=== PATIENT | female | born 1990 | race Caucasian/White ===

== ENCOUNTER 2016-12-16 16:28 | Emergency (ER) | payer MEDICAID ==
[~2016-12-16 16:28] MED LIST: CLIN1CAP6 PO; NAPR500 PO
[2016-12-16 16:54] VITALS: BP 133/69; PULSE 102
[2016-12-16 17:00] VITALS: RESP 20; TEMP 98.8
--- NOTE | 2016-12-16 17:26 | PD ---
HPI Chief Complaint Fall at home, decreased FM Date Seen: Dec 16, 2016 Time Seen: 16:45 Travel History International Travel<30 Days: No Contact w/Intl Traveler<30Days: No Known Affected Area: No History of Present Illness HPI 26 year old with no prior care presents to OB ED following at fall at home today at about 09:00 and reporting no movement since the fall. She states she tripped over her younger child and fell on hardwood and did brace her fall with her left hand however still landed on her stomach. Denies LOF or VB. Denies contractions. 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 She states she has not seen any active lesions in her genital region. Denies dysuria or hematuria. She does admit to use of crack cocaine last use about 4 weeks ago; also admits to use of IV Dilaudid last use also about 4 weeks ago. She is currently taking methadone an unknown dose as her clinic does not let their patients know of the dose. She plans to obtain OB care at [facility]. Para: 2 : 3 History Past Medical History Narrative Medical Currently taking methadone IVDA Obstetric History Obstetric History 2 prior term vaginal deliveries Past Surgical History Surgical History: No Previous Surgery Family History Family History: Negative Social History Alcohol Use: No Tobacco Use: Yes (States she is currently smoking about 1 pack every 3 days) Substance Abuse: Yes (Per HPI) Allergies-Medications (Allergen,Severity, Reaction): Coded Allergies: Amoxicillin (Verified Allergy, Intermediate, Rash, 09/22/16) Latex (Verified Adverse Reaction, Mild, Swelling, 09/22/16) Home Meds Active Scripts Naproxen (Naprosyn)500 Mg [id number] Mg PO BID PRN (PAIN SCALE 1 TO 10) #20 TAB Prov:Olayinka Pascal MD 09/22/16 Clindamycin 300 Mg [id number] Mg PO Q6H 10 Days Prov:Olayinka Pascal MD 09/22/16 Review of Systems Except as stated in HPI: all other systems reviewed are Neg Physical Exam Narrative GENERAL: Well-nourished, well-developed patient. SKIN: Warm and dry. HEAD: Normocephalic and atraumatic. EYES: No scleral icterus. No injection or drainage. ENT: No nasal drainage noted. Mucous membranes pink. Airway patent. NECK: Supple, trachea midline. No JVD. CARDIOVASCULAR: Regular rate and rhythm without murmurs, gallops, or rubs. RESPIRATORY: Breath sounds equal bilaterally. No accessory muscle use. ABDOMEN/GI: Abdomen soft, non-tender, bowel sounds present, no rebound, no guarding Gravid to 20 weeks size GENITOURINARY: External Genitalia: [-] BUS glands: [-] Cervix: [-] Dilatation: [-] Effacement: [-] Station: [-] Presentation: [-] Membranes: [intact or ruptured] Uterine Contractions: [-] FHT's: Category: [-] Baseline: [-] Reactive: [-] Variability: [-] Decels: [-] EXTREMITIES: No cyanosis or edema. BACK: Nontender without obvious deformity. NEUROLOGICAL: Awake and alert. Motor and sensory grossly within normal limits. Normal speech. Data Data Vital Signs Reviewed: Yes Orders Ob Poc Ultrasound (12/16/16 ) MDM Medical Record Reviewed: Yes Plan 26 year old with no prior care presents to OB ED following at fall at home today at about 09:00 and reporting no movement since the fall. 1. IUP - POC ultrasound performed in OB triage showed a breech female at 21 weeks 5 days size with BONNIE 04/23/2017 - Fetus active on ultrasound - Obtained urine toxicology screen - Patient was advised to obtain care and stated she will follow up with [facility] however would like to deliver here 2. Vaginal itching - Recommended the patient obtain otc monistat for relief of symptoms - Follow up with OB provider for continued care dejah Galvan Diagnosis Diagnosis: Primary Impression: Intrauterine Additional Impressions: Drug use affecting in second trimester Fall at home Disposition: DISCHARGE HOME Condition: Stable Anmol Reyes MD R1 Dec 16, 2016 17:26
--- NOTE | 2016-12-16 17:27 | PD ---
HPI Chief Complaint Patient fell at home did not hit her abdomen but since falling has not felt baby move, she has no care, and admits to fairly recent drug use and she said she didn't find out she was until a month ago Date Seen: Dec 16, 2016 Travel History International Travel<30 Days: No Contact w/Intl Traveler<30Days: No Known Affected Area: No History of Present Illness HPI The patient is 26-year-old white female with no care approximately 6 months along she doesn't know who presents that falling at home tripping over her toddler she did not hit her abdomen, she denies vaginal bleeding leakage of fluid. Para: 2 : 3 History Obstetric History Obstetric History 2 vaginal deliveries Social History Narrative Social History Patient is currently on methadone she is a known crack cocaine user Dilaudid user she states she was "using" up until a month ago when she found out she was Alcohol Use: Yes Tobacco Use: Yes Substance Abuse: Yes Allergies-Medications (Allergen,Severity, Reaction): Coded Allergies: Amoxicillin (Verified Allergy, Intermediate, Rash, 09/22/16) Latex (Verified Adverse Reaction, Mild, Swelling, 09/22/16) Home Meds Active Scripts Naproxen (Naprosyn)500 Mg [id number] Mg PO BID PRN (PAIN SCALE 1 TO 10) #20 TAB Prov:Olayinka Pascal MD 09/22/16 Clindamycin 300 Mg [id number] Mg PO Q6H 10 Days Prov:Olayinka Pascal MD 09/22/16 Review of Systems General / Constitutional: No: Fever, Weight Gain, Chills, Other Eyes: No: Diploplia, Blurred Vision, Visual changes, Pain, Photophobia HENT: No: Headaches, Vertigo, Lightheadedness Cardiovascular: No: Irregular Rhythm, Chest Pain or Discomfort, Palpitations, Tachycardia, Syncope, Varicosities, Edema, Cyanosis Respiratory: No: Cough, Short of Breath, Other Gastrointestinal: No: Nausea, Vomiting, Diarrhea Genitourinary: No: Decreased Urinary Output, Oliguria Musculoskeletal: No: Limited ROM, Weakness, Cramping, Edema, Pain Skin: No Rash, No Itching, No Dryness, No Lumps, No Change in Pigmentation, No Change in Nails, No Alopecia, No Lesions Neurologic: No: Weakness, Dizziness, Syncope, Focal Abnormalities, Coordination Problem, Headache, Slurred Speech, Seizures Psychiatric: No: Depression, Suicidal Ideations, Homicidal Ideation Endocrine: No: Heat Intolerance, Cold Intolerance, Polydipsia, Polyuria, Other Physical Exam Narrative GENERAL: Well-nourished, well-developed patient. SKIN: Warm and dry.covered in tattoos HEAD: Normocephalic and atraumatic. EYES: No scleral icterus. No injection or drainage. ENT: No nasal drainage noted. Mucous membranes pink. Airway patent. NECK: Supple, trachea midline. No JVD. CARDIOVASCULAR: Regular rate and rhythm without murmurs, gallops, or rubs. RESPIRATORY: Breath sounds equal bilaterally. No accessory muscle use. BREASTS: Bilateral exam showed no masses , no retractions, no nipple discharge. ABDOMEN/GI: Abdomen soft, non-tender, bowel sounds present, no rebound, no guarding Gravid to [-20] weeks size Fundal Height: [umbilicus-] GENITOURINARY: External Genitalia: intact and normal in appearance Membranes: [intact FHT's: Category: [-] Baseline: [-135] EXTREMITIES: No cyanosis or edema. BACK: Nontender without obvious deformity. No CVA tenderness. NEUROLOGICAL: Awake and alert. Motor and sensory grossly within normal limits. Five out of 5 muscle strength in all muscle groups. Normal speech. Data Data Orders Ob Poc Ultrasound (12/16/16 ) Vital Signs (Adult) .ON ADMISSION (12/16/16 17:17) ^ Labor Status (12/16/16 17:17) Ob/Psych Drug Screen, Urine (12/16/16 17:17) Labs Ultrasound done to bedside shows a breech fetus female 21 weeks 5 days size eye growth parameters within normal anatomy scan normal heart rate normal amniotic fluid volume, a right fundal grade 0 placenta, her due date and this ultrasound is 04/23/17 and estimated weight is 434 g, the patient was given a copy of that of report on ultrasound gives her OB provider's she will come across in the next few weeks MDM Interpretation(s) Patient is a 26 white female at 21-22 weeks gestation by an ultrasound done today has no care but presents due to decreased movement after a fall today. Her ultrasound today is normal she is a 21 week 5 day cycle size fetus in a breech presentation with adequate amniotic fluid volume normal right fundal placenta, and a due date by this ultrasound 04/23/17, baby on ultrasound is very active. The patient is planning care in the hospital and through [facility] however she plans to deliver here, she is arranged her first visit in the next few days. Diagnosis Diagnosis: Primary Impression: Decreased movement affecting management of in second trimester Additional Impressions: Fall Drug use affecting in second trimester Disposition: 01 DISCHARGE HOME Condition: Stable Jona Galvan II, MD Dec 16, 2016 17:27
[2016-12-16 18:09] LABS: AMPHETAMINE, URINE NEG (NEG); BARBITURATES, URINE NEG (NEG); COCAINE, URINE NEG (NEG)
[2016-12-20 08:50] LABS: PHENCYCLIDINE URINE NEG (NEG)
[2016-12-20 08:52] LABS: BATH SALTS (MDPV) UR NEG (NEG); ECSTASY (MDMA) UR NEG (NEG); HEROIN (6-ACETYLMORPHINE) UR NEG (NEG); K2 SPICE UR NEG (NEG); OXYCODONE (PERCODAN) NEG (NEG)
[2016-12-20 08:53] LABS: OBMETHADONE UR POS (NEG)
== END 2016-12-16 21:08 | disposition home or self-care (01) ==
LOC: HOBED 16:28
DX: O26.92 Pregnancy related conditions, unspecified, second trimester (principal); S36.30XA Unspecified injury of stomach, initial encounter; O99.332 Smoking (tobacco) complicating pregnancy, second trimester; Z3A.21 21 weeks gestation of pregnancy; W01.0XXA Fall on same level from slipping, tripping and stumbling without subsequent striking against object, initial encounter; Y93.9 Activity, unspecified; Y92.009 Unspecified place in unspecified non-institutional (private) residence as the place of occurrence of the external cause; Y99.9 Unspecified external cause status
CPT/HCPCS: 76815; 80307; 80352; 80354; 80356; 80358; 80359; 80371; 83992; G0480; G0481

== ENCOUNTER 2017-04-06 17:54 | Emergency (ER) | payer MEDICAID ==
[~2017-04-06] VITALS: Ht 157.5 cm; Wt 90.7 kg
--- NOTE | 2017-04-06 19:25 | PD ---
HPI Travel History International Travel<30 Days: No Contact w/Intl Traveler<30Days: No Known Affected Area: No History of Present Illness HPI This patient is a 27-year-old 3 para 2001 EDC is April 16, 2017 at 38 weeks and 4 days she presents with chief complaint of contraction she states they began last night increased today they stopped and then came back, very irregular in nature thought she may be leaking fluid is well no bleeding the baby is active care with Dr. Brown, at last exam she was 3-4 cm dilated Course is remarkable for the patient being on methadone a blind dose for the past 2 years History Past Medical History Narrative Medical Patient is allergic to amoxicillin latex history of asthma Obstetric History Obstetric History First baby born 2010 male infant weight 7 lbs. 2 oz. vaginal delivery Second baby born 2014 male infant weight 7 lbs. 9 oz. vaginal delivery complicated by shoulder dystocia relieved by Mami Family History Family History: Negative Social History Alcohol Use: No Tobacco Use: Yes (smokes a third of a pack of cigarettes per day) Substance Abuse: Yes (history of crack cocaine and Dilaudid use presently on methadone blind dose) Allergies-Medications (Allergen,Severity, Reaction): Coded Allergies: Amoxicillin (Verified Allergy, Intermediate, Rash, 09/22/16) Latex (Verified Adverse Reaction, Mild, Swelling, 09/22/16) Home Meds Active Scripts Naproxen (Naprosyn)500 Mg [id number] Mg PO BID PRN (PAIN SCALE 1 TO 10) #20 TAB Prov:Olayinka Pascal MD 09/22/16 Clindamycin 300 Mg [id number] Mg PO Q6H 10 Days Prov:Olayinka Pascal MD 09/22/16 Review of Systems Gastrointestinal: Abdominal Pain (irregular contractions) Physical Exam Narrative GENERAL: Well-nourished, well-developed patient. Alert oriented 3 and cooperative in no acute distress SKIN: Warm and dry. HEAD: Normocephalic and atraumatic. EYES: No scleral icterus. No injection or drainage. ENT: No nasal drainage noted. Mucous membranes pink. Airway patent. NECK: Supple, trachea midline. No JVD. CARDIOVASCULAR: Regular rate and rhythm without murmurs, gallops, or rubs. RESPIRATORY: Breath sounds equal bilaterally. No accessory muscle use. ABDOMEN/GI: Gravid consistent with stated gestational age occasional mild palpable contractions Gravid to [-] weeks size 37-38 weeks Fundal Height: [-] GENITOURINARY: External Genitalia: intact and normal in appearance BUS glands: [-] Cervix: [-] Slightly posterior Dilatation: [-] 3-4 cm dilated Effacement: [-] 50% effaced Station: [-] Ballotable Presentation: [-] Vertex Membranes: [intact amnisure is negative Uterine Contractions: [-] Irregular FHT's: Category: [-] 1 Baseline: [-] 130 Reactive: [-] + Variability: [-] Moderate variability Decels: [-] 0 EXTREMITIES: No cyanosis or edema. 2+ reflexes NEUROLOGICAL: Awake and alert. Motor and sensory grossly within normal limits. Five out of 5 muscle strength in all muscle groups. Normal speech. Data Data Vital Signs Reviewed: Yes (blood pressure 128/70 pulse is 84 temperature is 98.1) MDM Medical Record Reviewed: No (no records available) Interpretation(s) 27-year-old 3 para 2 at 38 weeks and 4 days Herman Kapoor contractions History of crack cocaine and Dilaudid use Presently on methadone No cervical change from exam in the office Plan After appropriate monitoring discharge patient home By mouth fluid hydration kick counts She is to obtain her records this patient wants to deliver here at [place] Keep her next clinic appointment with Dr. Brown Diagnosis Diagnosis: Primary Impression: 38 weeks gestation of Additional Impressions: Herman Kapoor contractions History of drug abuse Cigarette smoker History of shoulder dystocia in prior Disposition: 01 DISCHARGE HOME Condition: Stable Patient Instructions: General Instructions, Early Labor Signs (ED), Having Your Baby: The Labor Process (GEN), Movement (ED) Departure Forms: Tests/Procedures Ekta Esteves MD Apr 06, 2017 19:25
== END 2017-04-06 19:28 | disposition home or self-care (01) ==
LOC: HOBED 17:54
DX: O47.1 False labor at or after 37 completed weeks of gestation (principal); O99.333 Smoking (tobacco) complicating pregnancy, third trimester; J45.909 Unspecified asthma, uncomplicated; Z88.0 Allergy status to penicillin; Z3A.38 38 weeks gestation of pregnancy
CPT/HCPCS: 59025; 84112

== ENCOUNTER 2017-04-10 14:28 | Inpatient (IN) | payer MEDICAID ==
[2017-04-10] VITALS (22 sets, daily range): BP systolic 107–133; BP diastolic 68–91; PULSE 64–95; RESP 18–20; TEMP 97.8–98.4
[~2017-04-10] VITALS: Ht 157.5 cm; Wt 90.7 kg
--- NOTE | 2017-04-10 14:48 | PD ---
HPI Chief Complaint Leakage of fluid Date Seen: Apr 10, 2017 Time Seen: 15:00 Travel History International Travel<30 Days: No Contact w/Intl Traveler<30Days: No History of Present Illness HPI 27-year-old at 39/1 weeks gestation presenting with leakage of fluid. This morning, she noted some clear fluid soaking her panties. She changed her underwear, and fluid continued to leak couple more times. She also noted contractions beginning earlier this morning. Contractions were not very intense , but were occurring fairly regularly every 10 minutes. There was a brief interval of about 45 minutes around lunch where she did not have any contractions. She denies vaginal bleeding. Endorses movement. Denies chest pain, shortness of breath, dysuria, fevers or chills. Endorses urinary frequency. History Past Medical History Narrative Medical Tobacco use History of substance abuse in recovery on methadone Obstetric History Obstetric History Prior pregnancies delivered vaginally, without complication Past Surgical History Surgical History: No Previous Surgery Family History Family History: Negative Social History Alcohol Use: No Tobacco Use: Yes (roughly 4 cigarettes per day) Substance Abuse: No (history of IV Dilaudid and crack cocaine use, stopped both at 4 months of ; currently on methadone dosed blindly by recovery clinic) Allergies-Medications (Allergen,Severity, Reaction): Coded Allergies: Amoxicillin (Verified Allergy, Intermediate, Rash, 09/22/16) Latex (Verified Adverse Reaction, Mild, Swelling, 09/22/16) Home Meds Active Scripts Naproxen (Naprosyn)500 Mg [id number] Mg PO BID PRN (PAIN SCALE 1 TO 10) #20 TAB Prov:Olayinka Pascal MD 09/22/16 Clindamycin 300 Mg [id number] Mg PO Q6H 10 Days Prov:Olayinka Pascal MD 09/22/16 Review of Systems Except as stated in HPI: all other systems reviewed are Neg Physical Exam Narrative GENERAL: Well-nourished, well-developed patient. SKIN: Warm and dry. HEAD: Normocephalic and atraumatic. EYES: No scleral icterus. No injection or drainage. ENT: No nasal drainage noted. Mucous membranes pink. Airway patent. CARDIOVASCULAR: Regular rate and rhythm without murmurs, gallops, or rubs. RESPIRATORY: Breath sounds equal bilaterally. No accessory muscle use. ABDOMEN/GI: Abdomen soft, non-tender, no rebound, no guarding GENITOURINARY: Cervix: midposition Dilation: 5 Effacement: 50 Presentation: vertex Membranes: intact (negative Amni-Sure) Contractions: Irregular FHT's: Category: 2 (initial variable decels, but difficult to interpret at first due to poor monitor placement) Baseline: 120 Reactive: N Variability: moderate Decels: Repeated variable decelerations EXTREMITIES: No cyanosis or edema. NEUROLOGICAL: Awake and alert. Motor and sensory grossly within normal limits. Normal speech. Data Data Vital Signs Reviewed: Yes Orders Vital Signs (Adult) .ON ADMISSION (04/10/17 14:46) ^ Labor Status (04/10/17 14:46) ^ Non Stress Test (04/10/17 14:46) ^ Hydration (04/10/17 14:46) Pamg-1 Test .ONCE (04/10/17 14:46) MDM Medical Record Reviewed: Yes Narrative Course / MDM 27-year-old at 39/1 weeks presenting with leakage of fluid and contractions #1 IUP Category 2 tracing - Continuous monitoring - Variable decels seem to have resolved; if recur, intervene with positioning, sugar, oxygen as needed #2 labor Currently regularly spaced contractions - Check UA to rule out UTI as mimic of contractions - Admit to L&D - Routine labor care - Epidural anesthesia #3 leakage of fluid Amni-sure negative #4 GBS negative Obtain record from [facility] to confirm #5 H/o drug abuse UDS November 2016 negative - Repeat UDS #6 tobacco abuse Smoking cessation counseling sdw Dr. Galvan Diagnosis Diagnosis: Primary Impression: Normal labor Additional Impression: Cigarette smoker Antonio Macias MD R1 Apr 10, 2017 14:48
[2017-04-10] MEDS ORDERED: LACTATED RINGER'S 1000 ML INJ 1,000 ML IV SCH ×2 (15:35→18:41)
[2017-04-10] MEDS ORDERED: LACTATED RINGER'S 1000 ML INJ 1,000 ML IV PRN (15:35)
[2017-04-10] MEDS ORDERED: LIDOCAINE HCL 1% 50 ML VIAL I-DERMAL PRN (15:45)
[2017-04-10] MEDS ORDERED: LIDOCAINE HCL 1% 50 ML VIAL INFIL PRN (15:45)
[2017-04-10] MEDS ORDERED: MINERAL OIL 10 ML VIAL TOPICAL PRN (15:45)
[2017-04-10] MEDS ORDERED: OXYTOCIN 30 UNITS-500ML PREMIX 500 ML IV ONE (15:45)
[2017-04-10] MEDS ORDERED: CITRIC ACID-SODIUM CITRATE LIQ 30 ML UDC PO SCH (15:45)
[2017-04-10] MEDS ORDERED: SODIUM CHLORID 0.9% 500 ML INJ 500 ML IV PRN (15:45)
--- NOTE | 2017-04-10 15:45 | HHI.HP ---
History & Physical H&P HPI HPI Chief Complaint Leakage of fluid Date Seen: Apr 10, 2017 Time Seen: 15:00 Travel History International Travel<30 Days: No Contact w/Intl Traveler<30Days: No History of Present Illness HPI 27-year-old at 39/1 weeks gestation presenting with leakage of fluid. This morning, she noted some clear fluid soaking her panties. She changed her underwear, and fluid continued to leak couple more times. She also noted contractions beginning earlier this morning. Contractions were not very intense , but were occurring fairly regularly every 10 minutes. There was a brief interval of about 45 minutes around lunch where she did not have any contractions. She denies vaginal bleeding. Endorses movement. Denies chest pain, shortness of breath, dysuria, fevers or chills. Endorses urinary frequency. History (Limited) History Past Medical History Narrative Medical Tobacco use History of substance abuse in recovery on methadone Obstetric History Obstetric History Prior pregnancies delivered vaginally, without complication Past Surgical History Surgical History: No Previous Surgery Family History Family History: Negative Social History Alcohol Use: No Tobacco Use: Yes (roughly 4 cigarettes per day) Substance Abuse: No (history of IV Dilaudid and crack cocaine use, stopped both at 4 months of ; currently on methadone dosed blindly by recovery clinic) Allergies-Medications Allergies-Medications (Allergen,Severity, Reaction): Coded Allergies: Amoxicillin (Verified Allergy, Intermediate, Rash, 09/22/16) Latex (Verified Adverse Reaction, Mild, Swelling, 09/22/16) Home Meds Active Scripts Naproxen (Naprosyn)500 Mg [id number] Mg PO BID PRN (PAIN SCALE 1 TO 10) #20 TAB Prov:Olayinka Pascal MD 09/22/16 Clindamycin 300 Mg [id number] Mg PO Q6H 10 Days Prov:Olayinka Pascal MD 09/22/16 ROS Review of Systems Except as stated in HPI: all other systems reviewed are Neg Physical Exam Physical Exam Narrative GENERAL: Well-nourished, well-developed patient. SKIN: Warm and dry. HEAD: Normocephalic and atraumatic. EYES: No scleral icterus. No injection or drainage. ENT: No nasal drainage noted. Mucous membranes pink. Airway patent. CARDIOVASCULAR: Regular rate and rhythm without murmurs, gallops, or rubs. RESPIRATORY: Breath sounds equal bilaterally. No accessory muscle use. ABDOMEN/GI: Abdomen soft, non-tender, no rebound, no guarding GENITOURINARY: Cervix: midposition Dilation: 5 Effacement: 50 Presentation: vertex Membranes: intact (negative Amni-Sure) Contractions: Irregular FHT's: Category: 2 (initial variable decels, but difficult to interpret at first due to poor monitor placement) Baseline: 120 Reactive: N Variability: moderate Decels: Repeated variable decelerations EXTREMITIES: No cyanosis or edema. NEUROLOGICAL: Awake and alert. Motor and sensory grossly within normal limits. Normal speech. Data Data Data Vital Signs Reviewed: Yes Orders Vital Signs (Adult) .ON ADMISSION (04/10/17 14:46) ^ Labor Status (04/10/17 14:46) ^ Non Stress Test (04/10/17 14:46) ^ Hydration (04/10/17 14:46) Pamg-1 Test .ONCE (04/10/17 14:46) MDM MDM Medical Record Reviewed: Yes Narrative Course / MDM 27-year-old at 39/1 weeks presenting with leakage of fluid and contractions #1 IUP Category 2 tracing - Continuous monitoring - Variable decels seem to have resolved; if recur, intervene with positioning, sugar, oxygen as needed #2 labor Currently regularly spaced contractions - Check UA to rule out UTI as mimic of contractions - Admit to L&D - Routine labor care - Epidural anesthesia #3 leakage of fluid Amni-sure negative #4 GBS negative Obtain record from [facility] to confirm #5 H/o drug abuse UDS November 2016 negative - Repeat UDS #6 tobacco abuse Smoking cessation counseling sdw Dr. Galvan Diagnosis Diagnosis: Primary Impression: Normal labor Additional Impression: Cigarette smoker Antonio Macias MD R1 Apr 10, 2017 15:45
--- NOTE | 2017-04-10 15:52 | PD.LABORPN ---
Subjective Subjective Sitting up in bed, no concerns Objective Vital Signs Vital Signs Date Time Temp Pulse Resp B/P Pulse Ox O2 Delivery O2 Flow Rate FiO2 04/10/17 14:53 88 121/79 Objective FHT's: Category: 1 Baseline: 120 Reactive: Y Variability: moderate Decels: N Assessment/Plan Assessment and Plan 27 yo at 39/1 weeks in labor IUP ----> Category 1 (converted from 2 since strip became reactive) GBS neg ---> confirming with record from [facility] Rh type pending Epidural anesthesia to be placed Antonio Macias MD R1 Apr 10, 2017 15:52
[2017-04-10] MEDS ORDERED: SODIUM CHLOR 0.9% 1000 ML INJ 1,000 ML IV PRN (15:55)
[2017-04-10 16:14] LABS: AMPHETAMINE, URINE NEG (NEG); BARBITURATES, URINE NEG (NEG); COCAINE, URINE NEG (NEG)
[2017-04-10 16:23] LABS: BLOOD, URINE NEG (NEG); CALCIUM OXALATE CRYSTALS,URINE OCC /hpf; COMMENT (UR) CULT NOT INDICATED; CULTURE IF INDICATED CULT NOT INDICATED; GLUCOSE,URINE NEG (NEG); KETONE, URINE NEG (NEG); MUCUS URINE FEW /lpf (OCC); NITRITE,URINE NEG (NEG); SQUAMOUS EPITHELIAL CELL URINE 3 /hpf (0-5); URINE COLOR YELLOW (YELLW/STRAW)
[2017-04-10 16:55] LABS: AUTOMATED NEUTROPHIL # 8.8 TH/MM3 (1.8-7.7); BASOPHIL % 0.1 % (0.0-2.0); EOSINOPHIL # 0.1 TH/MM3 (0-0.4); EOSINOPHIL % 0.7 % (0.0-4.0); HEMATOCRIT 32.8 % (35.0-46.0); HEMO FLAGS DIFF FINAL; LYMPH % 21.2 % (9.0-44.0); LYMPHOCYTE # 2.6 TH/MM3 (1.0-4.8); MEAN CELL VOLUME 89.1 FL (80.0-100.0); MEAN CORPUSCULAR HEMOGLOBIN 29.9 PG (27.0-34.0); MEAN CORPUSCULAR HGB CONC 33.6 % (32.0-36.0); MONO % 6.7 % (0.0-8.0); NEUT % 71.3 % (16.0-70.0); PLATELET COUNT 187 TH/MM3 (150-450); RED BLOOD COUNT 3.68 MIL/MM3 (4.00-5.30); RED CELL DISTRIBUTION WIDTH 14.2 % (11.6-17.2); WHITE BLOOD COUNT 12.3 TH/MM3 (4.0-11.0)
[2017-04-10] MEDS ORDERED: hydrALAZINE HCL 20 MG/ML VIAL IV PUSH PRN ×2 (18:45→19:15)
[2017-04-10] MEDS ORDERED: SODIUM CHLORIDE 0.9% FLUSH 5 ML FLUSH IV PRN (18:45)
[2017-04-10] MEDS ORDERED: ACETAMINOPHEN 325 MG TAB PO PRN (18:45)
[2017-04-10] MEDS ORDERED: ZOLPIDEM TARTRATE 5 MG TAB PO PRN (18:45)
[2017-04-10] MEDS ORDERED: ONDANSETRON HCL 4 MG/2 ML VIAL IV PRN (18:45)
[2017-04-10] MEDS ORDERED: CALCIUM GLUCONATE 10% 1 GM/10 ML VIAL IV PUSH PRN (18:45)
[2017-04-10] MEDS ORDERED: BETAMETHASONE SOD PHOS/ACETATE SUSP 30 MG/5 ML VIAL IM SCH (18:45)
[2017-04-10] MEDS ORDERED: DOCUSATE SODIUM 100 MG CAP PO PRN (18:45)
[2017-04-10] MEDS ORDERED: PREN29TA PO ×2 (19:06)
[2017-04-10] MEDS ORDERED: METH5TAB PO ×2 (19:06)
--- NOTE | 2017-04-10 20:29 | PD.LABORPN ---
Subjective Subjective Labor note AROM clear , cx 6/ 70/-3/ vtx , after AROM exam done and a hand was palpated beside the head , there was still bag of water around presenting part as my AROM was a small pin prick size and led to slow effusion of AF. I was planning to put an IUPC and scalp electrode at the same time as the AROM but when I felt the hand near the head of felt that the presenting part was not stable enough to try and put an IUPC and scalp electrode at this time I felt best just leave it alone (fluid drained off and the baby's head come down on its own. heart tones are in the 130s and contractions are every 4-6 minutes Objective Vital Signs Vital Signs Date Time Temp Pulse Resp B/P Pulse Ox O2 Delivery O2 Flow Rate FiO2 04/10/17 20:00 18 04/10/17 19:30 18 04/10/17 19:15 81 04/10/17 18:55 86 04/10/17 18:50 98.1 04/10/17 18:50 78 04/10/17 18:45 79 04/10/17 18:45 79 18 133/91 04/10/17 18:40 77 04/10/17 18:35 95 04/10/17 18:30 77 04/10/17 18:25 78 04/10/17 18:20 76 04/10/17 16:30 19 04/10/17 16:00 19 04/10/17 15:00 98.4 20 04/10/17 14:53 88 121/79 Objective Pelvic Exam: Cervix: [-] Dilatation: [-] Effacement: [-] Station: [-] Presentation: [-] Membranes: [intact or ruptured] Uterine Contractions: [-] FHT's: Category: [-] Baseline: [-] Reactive: [-] Variability: [-] Decels: [-] Jona Galvan II, MD Apr 10, 2017 20:29
[2017-04-10] MEDS ORDERED: SODIUM CHLORIDE 0.9% FLUSH 5 ML FLUSH IV SCH (21:00)
[2017-04-10] MEDS ORDERED: OXYTOCIN 30 UNITS-500ML PREMIX 500 ML IV SCH (22:15)
[2017-04-11] VITALS (53 sets, daily range): BP systolic 111–153; BP diastolic 69–115; PULSE 61–88; RESP 16–20; TEMP 98–98.8; O2SAT 99–100
[2017-04-11] MEDS ORDERED: fentaNYL 2MCG-BUPIV 0.125% INJ 100 ML ONE (00:53)
[2017-04-11] MEDS ORDERED: ePHEDrine/NS 25 MG/5 ML SYR IV PRN (01:45)
[2017-04-11] MEDS ORDERED: fentaNYL 2MCG-BUPIV 0.125% 100 ML EPIDURAL SCH (01:45)
[2017-04-11] MEDS ORDERED: NO SYSTEM NARCOTICS PRN (01:45)
[2017-04-11] MEDS ORDERED: DO NOT ADMINISTER ANTICOAGULANTS PRN (01:45)
[2017-04-11] MEDS ORDERED: BENZOCAINE 20% TOPICAL SPRAY 60 ML CAN TOPICAL PRN (03:30)
[2017-04-11] MEDS ORDERED: SODIUM CHLORIDE 0.9% FLUSH 10 ML FLUSH IV FLUSH PRN (03:30)
[2017-04-11] MEDS ORDERED: DOCUSATE SODIUM 50 MG/SENNA 8.6 MG TAB PO PRN (03:30)
[2017-04-11] MEDS ORDERED: ALUMINUM/MAGNESIUM/SIMETH 30 ML CUP PO PRN (03:30)
[2017-04-11] MEDS ORDERED: ZOLPIDEM TARTRATE 5 MG TAB PO PRN (03:30)
[2017-04-11] MEDS ORDERED: oxyCODONE/ACETAMINOPHEN 5 MG/325 MG TAB PO PRN (03:30)
[2017-04-11] MEDS ORDERED: WITCH HAZEL 50%/GLYCERIN 12.5% 40 PAD JAR TOPICAL PRN (03:30)
[2017-04-11] MEDS ORDERED: ONDANSETRON ODT 4 MG TAB PO PRN (03:30)
[2017-04-11] MEDS ORDERED: ACETAMINOPHEN 325 MG TAB PO PRN (03:30)
--- NOTE | 2017-04-11 03:30 | PD.OB.DELI ---
Anesthesia: Epidural Episiotomy: None Vaginal Delivery: Normal Presentation: Occiput anterior Nuchal Cord: x1 Delayed cord clamping (45 sec): Yes : Male One Minute : 9 Five Minute : 9 Weight: 3190 gm Placenta: Spontaneous delivery, Intact Laceration: No lacerations Additional Information nuchal cord reduced over head prior to delivery Jona Galvan II, MD Apr 11, 2017 03:30
[2017-04-11] MEDS: IBUPROFEN 600 MG TAB PO PRN ×3 (06:00→21:19)
--- NOTE | 2017-04-11 08:35 | HHI.OB ---
Subjective Post Day: 0 Remarks 27 year old female s/p at 39 wks gestation, PPD 2. AFVSS. Patient reports she is feeling well. Bleeding is decreasing and pain is well- controlled. She is formula feeding and bonding well with baby. Ambulating without difficulties. She is tolerating a diet without nausea or vomiting. She has not had a bowel movement. She has passed gas. Denies chest pain, dysuria, shortness of breath, or calf pain. Objective Vitals/I&O Vital Signs Date Time Temp Pulse Resp B/P Pulse Ox O2 Delivery O2 Flow Rate FiO2 04/11/17 05:35 98.4 70 18 121/73 04/11/17 05:00 18 04/11/17 04:20 18 04/11/17 04:15 75 112/74 04/11/17 04:15 78 04/11/17 04:15 99 04/11/17 04:10 99 04/11/17 04:10 81 04/11/17 04:05 74 04/11/17 04:05 18 04/11/17 04:05 99 04/11/17 04:01 73 121/70 04/11/17 04:00 73 04/11/17 04:00 100 04/11/17 03:55 78 04/11/17 03:55 100 04/11/17 03:50 79 18 04/11/17 03:50 100 04/11/17 03:45 70 04/11/17 03:45 100 04/11/17 03:45 75 122/83 04/11/17 03:40 100 04/11/17 03:40 76 04/11/17 03:35 71 04/11/17 03:35 18 04/11/17 03:35 100 04/11/17 03:31 73 128/74 04/11/17 03:30 100 04/11/17 03:30 77 04/11/17 03:25 84 04/11/17 03:25 100 04/11/17 03:25 18 04/11/17 03:25 98.0 04/11/17 03:20 100 04/11/17 03:20 88 04/11/17 03:15 77 04/11/17 03:15 100 04/11/17 03:10 77 100 04/11/17 03:05 100 04/11/17 03:05 78 04/11/17 03:00 84 04/11/17 03:00 100 04/11/17 03:00 18 04/11/17 03:00 78 133/115 04/11/17 02:55 64 04/11/17 02:50 65 04/11/17 02:45 61 116/69 04/11/17 02:45 68 04/11/17 02:40 63 04/11/17 02:35 71 04/11/17 02:30 66 04/11/17 02:30 18 04/11/17 02:30 66 114/70 04/11/17 02:25 65 04/11/17 02:20 67 04/11/17 02:15 66 116/74 04/11/17 02:15 68 04/11/17 02:05 68 04/11/17 02:00 18 04/11/17 02:00 68 120/69 04/11/17 02:00 66 04/11/17 01:55 67 04/11/17 01:50 68 04/11/17 01:45 18 04/11/17 01:45 75 136/74 04/11/17 01:45 70 04/11/17 01:40 71 04/11/17 01:40 73 122/72 04/11/17 01:35 76 04/11/17 01:35 69 122/69 04/11/17 01:30 85 04/11/17 01:30 73 131/77 04/11/17 01:25 75 04/11/17 01:25 75 120/69 04/11/17 01:21 75 125/76 04/11/17 01:20 69 17 01:17 18 04/11/17 01:16 72 141/86 04/11/17 01:15 18 04/11/17 01:15 79 04/11/17 01:11 76 153/100 04/11/17 01:10 73 04/11/17 01:05 69 04/11/17 01:04 72 146/98 04/11/17 01:00 98.0 04/11/17 01:00 18 04/11/17 00:27 18 04/11/17 00:27 66 113/71 04/11/17 00:00 18 04/10/17 23:32 64 121/82 04/10/17 23:30 18 04/10/17 22:45 98.0 04/10/17 22:44 18 04/10/17 22:40 73 107/68 04/10/17 22:00 18 04/10/17 21:00 97.8 04/10/17 21:00 18 04/10/17 20:00 18 04/10/17 19:30 18 04/10/17 19:15 81 04/10/17 18:55 86 04/10/17 18:50 98.1 04/10/17 18:50 78 04/10/17 18:45 79 04/10/17 18:45 79 18 133/91 04/10/17 18:40 77 04/10/17 18:35 95 04/10/17 18:30 77 04/10/17 18:25 78 04/10/17 18:20 76 04/10/17 16:30 19 04/10/17 16:00 19 04/10/17 15:00 98.4 20 04/10/17 14:53 88 121/79 Objective Remarks GENERAL: Well-nourished, well-developed patient. CARDIOVASCULAR: Regular rate and rhythm without murmurs, gallops, or rubs. RESPIRATORY: Breath sounds equal bilaterally. No accessory muscle use. ABDOMEN/GI: Abdomen soft, non-tender. Fundus: Firm, non-tender at umbilicus. GENITOURINARY: Light to moderate bleeding. EXTREMITIES: No cyanosis or edema, non-tender, without signs of DVT. Medications and IVs Current Medications Medications (Trade) Dose Ordered Sig/Laz Route Start Time Stop Time Status Last Admin (Stuartnatal Plus 3 ) 1 tab DAILY PO 04/11/17 09:00 Miscellaneous Information No systemic narcotics to be given except... UNSCH PRN .XX 04/11/17 01:45 04/12/17 01:44 Miscellaneous Information DO NOT ADMINISTER ANY ANTICOAGUL... UNSCH PRN .XX 04/11/17 01:45 04/12/17 01:44 (NS Flush) 2 ml BID IV FLUSH 04/11/17 09:00 (NS Flush) 2 ml UNSCH PRN IV FLUSH 04/11/17 03:30 (Tylenol) 650 mg Q4H PRN PO 04/11/17 03:30 (Motrin) 600 mg Q6H PRN PO 04/11/17 03:30 04/11/17 06:00 (Percocet 5-325 Mg) 1 tab Q4H PRN PO 04/11/17 03:30 (Americaine 20% Top Spr) 1 spray Q4H PRN TOPICAL 04/11/17 03:30 (Tucks Pads) 1 applic QID PRN TOPICAL 04/11/17 03:30 (Chyna-Colace) 2 tab Q12H PRN PO 04/11/17 03:30 (Ambien) 5 mg HS PRN PO 04/11/17 03:30 (M-M-R Ii Inj) 0.5 ml ONCE ONCE SQ 04/11/17 16:00 04/11/17 16:01 (Boostrix Inj) 0.5 ml ONCE ONCE IM 04/11/17 16:00 04/11/17 16:01 (Mag-Al Plus Susp Liq) 15 ml Q8H PRN PO 04/11/17 03:30 (Zofran Odt) 4 mg Q6H PRN PO 04/11/17 03:30 Assessment/Plan Problem List: (1) Vaginal delivery (2) History of drug abuse (3) Cigarette smoker Assessment and Plan 27 yo female s/p , PPD 0 - AFVSS - H/o drug abuse, currently on methadone at blinded dosing. 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 - Smoking cessation counseling - Continue routine care - Motrin PRN pain - Encourage OOB - Pelvic rest x 6 wks - Contraception: Undecided - Anticipate D/C 04/13 Antonio Macias MD R1 Apr 11, 2017 08:35
[2017-04-11] MEDS ORDERED: SODIUM CHLORIDE 0.9% FLUSH 10 ML FLUSH IV FLUSH SCH (09:00)
[2017-04-11] MEDS: METHADONE HCL 10 MG/10 ML ORAL SOLUTION PO SCH (11:54)
[2017-04-11] MEDS ORDERED: DIPHTH/TETANUS/ACEL PERTUSSIS (BOOSTER) 0.5 ML VIAL/PFS IM ONE (16:00)
[2017-04-11] MEDS ORDERED: MEASLES, MUMPS, RUBELLA VACCINE 0.5 ML VIAL SQ ONE (16:00)
[2017-04-12] MEDS: IBUPROFEN 600 MG TAB PO PRN ×2 (06:13→18:21)
[2017-04-12] MEDS ORDERED: IBUP-232 PO (07:15)
--- NOTE | 2017-04-12 07:15 | HHI.DCPOC ---
Discharge Care Plan Diagnosis: (1) Normal vaginal delivery Report Symptoms to Your Doctor -Temperature above 100.5 degrees -Redness, of incision or excessive or foul smelling drainage -Unusual pain or calf pain -Increased vaginal bleeding -Painful or difficulty urinating -Feelings of extreme sadness or anxiety after 2 weeks Goals to Promote Your Health * To prevent worsening of your condition and complications * To maintain your health at the optimal level Directions to Meet Your Goals Take your medications as prescribed Follow your dietary instruction Follow activity as directed Ensure plenty of rest for recovery Drink fluids for hydration Keep your appointments as scheduled Take your immunizations and boosters as scheduled If your symptoms worsen call your PCP, if no PCP go to Urgent Care Center or Emergency Room Smoking is Dangerous to Your Health. Avoid second hand smoke Call the 24-hour crisis hotline for domestic abuse at Antonio Macias MD R1 Apr 12, 2017 07:15
[2017-04-12 08:00] VITALS: BP 112/76; PULSE 66; RESP 18; TEMP 98.2
--- NOTE | 2017-04-12 08:24 | HHI.OB ---
Subjective Post Day: 1 Remarks 27 year old female s/p at 39 wks gestation, PPD 1. AFVSS. Patient reports she is feeling well. Bleeding is decreasing and pain is well- controlled. She is formula feeding and bonding well with baby. Ambulating without difficulties. She is tolerating a diet without nausea or vomiting. She has not had a bowel movement. She has passed gas. Denies chest pain, dysuria, shortness of breath, or calf pain. (Antonio Macias MD R1) Objective Vitals/I&O Vital Signs Date Time Temp Pulse Resp B/P Pulse Ox O2 Delivery O2 Flow Rate FiO2 04/11/17 20:15 98.4 04/11/17 20:15 87 20 133/85 04/11/17 08:48 98.8 82 16 111/81 Objective Remarks GENERAL: Well-nourished, well-developed patient. CARDIOVASCULAR: Regular rate and rhythm without murmurs, gallops, or rubs. RESPIRATORY: Breath sounds equal bilaterally. No accessory muscle use. ABDOMEN/GI: Abdomen soft, non-tender. Fundus: Firm, non-tender below umbilicus. GENITOURINARY: Light to moderate bleeding. EXTREMITIES: No cyanosis or edema, non-tender, without signs of DVT. Medications and IVs Current Medications Medications (Trade) Dose Ordered Sig/Laz Route Start Time Stop Time Status Last Admin (Stuartnatal Plus 3 ) 1 tab DAILY PO 04/11/17 09:00 (NS Flush) 2 ml BID IV FLUSH 04/11/17 09:00 (NS Flush) 2 ml UNSCH PRN IV FLUSH 04/11/17 03:30 (Tylenol) 650 mg Q4H PRN PO 04/11/17 03:30 (Motrin) 600 mg Q6H PRN PO 04/11/17 03:30 04/12/17 06:13 (Percocet 5-325 Mg) 1 tab Q4H PRN PO 04/11/17 03:30 (Americaine 20% Top Spr) 1 spray Q4H PRN TOPICAL 04/11/17 03:30 (Tucks Pads) 1 applic QID PRN TOPICAL 04/11/17 03:30 (Chyna-Colace) 2 tab Q12H PRN PO 04/11/17 03:30 (Ambien) 5 mg HS PRN PO 04/11/17 03:30 (Mag-Al Plus Susp Liq) 15 ml Q8H PRN PO 04/11/17 03:30 (Zofran Odt) 4 mg Q6H PRN PO 04/11/17 03:30 (Methadone Liq) 60 mg DAILY PO 04/11/17 10:45 04/11/17 11:54 (Antonio Macias MD R1) Assessment/Plan Problem List: (1) Vaginal delivery (2) History of drug abuse (3) Cigarette smoker Assessment and Plan 27 yo female s/p , PPD 0 - AFVSS - H/o drug abuse, currently on methadone at blinded dosing. - Resumed her dosing at 60 mg per day (confirmed with her methadone clinic) - Smoking cessation counseling - Continue routine care - Motrin PRN pain - Encourage OOB - Pelvic rest x 6 wks - Contraception: Undecided - Anticipate D/C 04/13; will stay in either NICU or peds floor for minimum 5-7 days depending on TOBY scores (Antonio Macias MD R1) Attending Attestation PPD #1 s/p Doing well on methadone Continue PP care and observation Patient seen and examined, d/w Dr. Macias/Dr. Keen (Diamond Sarabia MD) Antonio Macias MD R1 Apr 12, 2017 08:24 Diamond Sarabia MD Apr 12, 2017 09:35
[2017-04-12] MEDS: METHADONE HCL 10 MG/10 ML ORAL SOLUTION PO SCH (09:45)
[2017-04-12] MEDS: MULTIVIT/MIN/PREN/FOL AC/IRON PRENATAL TAB PO SCH (09:52)
[2017-04-12 19:40] VITALS: BP 121/76; PULSE 90; RESP 18; TEMP 98.2
[2017-04-13] MEDS: IBUPROFEN 600 MG TAB PO PRN (04:59)
[2017-04-13 08:00] VITALS: BP 108/67; PULSE 83; RESP 16; TEMP 98.4
--- NOTE | 2017-04-13 08:10 | HHI.OB ---
Subjective Post Day: 2 Remarks 27 year old female s/p at 39 wks gestation, PPD 2. AFVSS. Patient reports she is feeling well. Bleeding is decreasing and pain is well- controlled. She plans to breast feed and is bonding well with baby. Ambulating without difficulties. She is tolerating a diet without nausea or vomiting. She has passed gas. Denies chest pain, dysuria, shortness of breath, or calf pain. Objective Vitals/I&O Vital Signs Date Time Temp Pulse Resp B/P Pulse Ox O2 Delivery O2 Flow Rate FiO2 04/13/17 08:00 98.4 83 16 108/67 04/12/17 19:40 98.2 90 18 121/76 Objective Remarks GENERAL: Well-nourished, well-developed patient. CARDIOVASCULAR: Regular rate and rhythm without murmurs, gallops, or rubs. RESPIRATORY: Breath sounds equal bilaterally. No accessory muscle use. ABDOMEN/GI: Abdomen soft, non-tender. Fundus: Firm, non-tender below umbilicus. GENITOURINARY: Light to moderate bleeding. EXTREMITIES: No cyanosis or edema, non-tender, without signs of DVT. Medications and IVs Current Medications Medications (Trade) Dose Ordered Sig/Laz Route Start Time Stop Time Status Last Admin (Stuartnatal Plus 3 ) 1 tab DAILY PO 04/11/17 09:00 04/12/17 09:52 (NS Flush) 2 ml BID IV FLUSH 04/11/17 09:00 (NS Flush) 2 ml UNSCH PRN IV FLUSH 04/11/17 03:30 (Tylenol) 650 mg Q4H PRN PO 04/11/17 03:30 (Motrin) 600 mg Q6H PRN PO 04/11/17 03:30 04/13/17 04:59 (Percocet 5-325 Mg) 1 tab Q4H PRN PO 04/11/17 03:30 (Americaine 20% Top Spr) 1 spray Q4H PRN TOPICAL 04/11/17 03:30 (Tucks Pads) 1 applic QID PRN TOPICAL 04/11/17 03:30 (Chyna-Colace) 2 tab Q12H PRN PO 04/11/17 03:30 (Ambien) 5 mg HS PRN PO 04/11/17 03:30 (Mag-Al Plus Susp Liq) 15 ml Q8H PRN PO 04/11/17 03:30 (Zofran Odt) 4 mg Q6H PRN PO 04/11/17 03:30 (Methadone Liq) 60 mg DAILY PO 04/11/17 10:45 04/12/17 09:45 Assessment/Plan Problem List: (1) Vaginal delivery (2) History of drug abuse (3) Cigarette smoker Assessment and Plan 27 yo female s/p , PPD 2 - AFVSS - H/o drug abuse, currently on methadone at blinded dosing. - Resumed her dosing at 60 mg per day (confirmed with her methadone clinic) - Smoking cessation counseling - Continue routine care - Motrin PRN pain - Encourage OOB - Pelvic rest x 6 wks - Contraception: Desires Depo-Provera - Anticipate D/C 04/13; will stay in either NICU or peds floor for minimum 5-7 days depending on TOBY scores - Nurses are looking into a stay close room DW Melissa Lunsford MD R1 Apr 13, 2017 08:10
[2017-04-13] MEDS: MULTIVIT/MIN/PREN/FOL AC/IRON PRENATAL TAB PO SCH (08:57)
[2017-04-13] MEDS: METHADONE HCL 10 MG/10 ML ORAL SOLUTION PO SCH (08:58)
[2017-04-16 08:31] LABS: BATH SALTS (MDPV) UR NEG (NEG); ECSTASY (MDMA) UR NEG (NEG); GABAPENTIN UR NEG (NEG); HEROIN (6-ACETYLMORPHINE) UR NEG (NEG); HYDROMORPHONE U NEG (NEG); K2 SPICE UR NEG (NEG); OBMETHADONE UR POS (NEG); OXYCODONE (PERCODAN) NEG (NEG); PHENCYCLIDINE URINE NEG (NEG)
== END 2017-04-13 14:00 | disposition home or self-care (01) | DRG 775 ==
LOC: HOBED 14:28 → H2EB 15:39 → H1EA 04-11 05:15
PROVIDERS: ADMIT Obstetrics & Gynecology Maternal & Fetal Medicine; ATTEND Obstetrics & Gynecology Maternal & Fetal Medicine
PROC: 10907ZC Drainage of Amniotic Fluid, Therapeutic from Products of Conception, Via Natural or Artificial Opening (ICD-10-PCS; 2017-04-10)
PROC: 10E0XZZ Delivery of Products of Conception, External Approach (ICD-10-PCS; principal; 2017-04-11)
PROC: 00HU33Z Insertion of Infusion Device into Spinal Canal, Percutaneous Approach (ICD-10-PCS; 2017-04-11)
PROC: 3E0R3CZ (ICD-10-PCS; 2017-04-11)
DX: O99.324 Drug use complicating childbirth (principal); F11.20 Opioid dependence, uncomplicated; O99.334 Smoking (tobacco) complicating childbirth; O69.81X0 Labor and delivery complicated by cord around neck, without compression, not applicable or unspecified; F17.210 Nicotine dependence, cigarettes, uncomplicated; Z3A.39 39 weeks gestation of pregnancy; Z37.0 Single live birth
CPT/HCPCS: 59025; 80307; 81001; 84112; 85025; G0481; J2590; J3010; J7120